=== PATIENT | male | born 1950 | race Caucasian/White ===

== ENCOUNTER 2024-09-05 10:24 | Inpatient (IN) | payer MEDICARE, OTHER ==
[~2024-09-05] VITALS: Ht 177.8 cm; Wt 64.0 kg
[2024-09-05 11:11] LABS: HEMATOCRIT 54.3 % (41-53); HEMOGLOBIN 18.5 g/dL (13.5-17.5); MEAN CORPUSCULAR HEMOGLOBIN 32.2 pg (26.0-34.0); MEAN CORPUSCULAR VOLUME 95 fL (80-100); PLATELET COUNT (AUTO) 144 K/uL (150-450); RED BLOOD CELL COUNT(AUTO) 5.74 MIL/uL (4.50-5.90); RED CELL DISTRIBUTION WIDTH 13.8 % (11.5-14.5); WHITE BLOOD COUNT (AUTO) 20.1 K/uL (4.5-11.0)
[2024-09-05 11:18] LABS: CALCIUM, TOTAL 8.3 mg/dL (8.8-10.5); CARBON DIOXIDE 24 mmol/L (22-29); CHLORIDE 82 mmol/L (98-107); CREATININE 0.87 mg/dL (0.60-1.30); GLOMERULAR FILTR. RATE CALC > 60 mL/min (>60); GLUCOSE,RANDOM 123 mg/dL (70-110); POTASSIUM 3.8 mmol/L (3.5-5.1); UREA NITROGEN, BLOOD 41 mg/dL (7-18)
[2024-09-05 11:24] LABS: ANION GAP 9 mmol/L (8-16); SODIUM SERUM 115 mmol/L (136-145); TROPONIN I-HIGH SENSITIVITY 18 ng/L (<76)
[2024-09-05 11:51] LABS: BAND NEUTROPHILS % (MANUAL) 2 % (0-5); LYMPHOCYTES % (MANUAL) 7 % (22-44); MONOCYTES % (MANUAL) 10 % (2-9); SEGMENTED NEUTROPHILS % 81 % (40-70); TOTAL CELLS COUNTED 100
[2024-09-05] MEDS: SODIUM CHLORIDE 0.9% 1,000 ML IV ONE (11:59)
[2024-09-05 12:32] LABS: APPEARANCE,URINE CLEAR (CLEAR); BILIRUBIN,URINE NEGATIVE (NEGATIVE); COLOR,URINE YELLOW (YELLOW); GLUCOSE, URINE (UA) NEGATIVE (NEGATIVE); LEUKOCYTE ESTERASE ,URINE NEGATIVE (NEGATIVE); NITRATE,URINE NEGATIVE (NEGATIVE); OCCULT BLOOD,URINE TRACE (NEGATIVE); PROTEIN,URINE TRACE mg/dL (NEGATIVE); SPECIFIC GRAVITIY, URINE 1.023 (1.003-1.030); UROBILINOGEN,URINE <=1.0 mg/dL (<=1.0)
[2024-09-05 12:37] LABS: ALBUMIN 2.7 g/dL (3.4-5.0); BILIRUBIN,DIRECT 0.5 mg/dL (0.00-0.20); BILIRUBIN,TOTAL 1.3 mg/dL (0.1-1.0); TOTAL PROTEIN, SERUM 6.1 g/dL (6.4-8.2)
[2024-09-05 12:41] LABS: SODIUM,URINE RANDOM < 5 mmol/l (20-110)
[2024-09-05 12:49] LABS: BACTERIA,URINE None Seen /HPF (None Seen); RBC,URINE 0-2 /HPF (0-2); SQUAMOUS EPITHELIAL CELL,UR Few /LPF (None Seen); WBC,URINE None Seen /HPF (0-5)
[2024-09-05 13:06] LABS: FREE T4 (FREE THYROXINE) 1.01 ng/dL (0.76-1.46); THYROID STIMULATING HORMONE 0.83 uIU/mL (0.36-3.74)
[2024-09-05] MEDS: MORPHINE SULFATE 4 MG/ML SYRINGE IVP ONE (13:15)
[2024-09-05] MEDS: ONDANSETRON HCL 4 MG/2 ML VIAL IVP ONE (13:15)
[2024-09-05] MEDS: SODIUM CHLORIDE 3% 500 ML IV ONE (13:16)
[2024-09-05 13:27] LABS: LACTIC ACID 1.7 mmol/L (0.4-2.0)
[2024-09-05] MEDS: ACETAMINOPHEN 325 MG TABLET PO PRN (14:59)
[2024-09-05] MEDS: PANTOPRAZOLE SODIUM 40 MG/VIAL IVP ONE (15:00)
[2024-09-05 16:10] LABS: ANION GAP 6 mmol/L (8-16); CALCIUM, TOTAL 7.6 mg/dL (8.8-10.5); CARBON DIOXIDE 25 mmol/L (22-29); CHLORIDE 86 mmol/L (98-107); CREATININE 0.74 mg/dL (0.60-1.30); GLOMERULAR FILTR. RATE CALC > 60 mL/min (>60); GLUCOSE,RANDOM 89 mg/dL (70-110); UREA NITROGEN, BLOOD 36 mg/dL (7-18)
[2024-09-05 16:12] LABS: SODIUM SERUM 117 mmol/L (136-145)
[2024-09-05] MEDS: HEPARIN SODIUM,PORCINE 5,000 UNITS/ML VIAL SQ SCH (16:14)
[2024-09-05 16:48] LABS: HEMATOCRIT 49.9 % (41-53); HEMOGLOBIN 16.9 g/dL (13.5-17.5)
[2024-09-05 18:49] LABS: HEMATOCRIT 47.8 % (41-53); HEMOGLOBIN 16.4 g/dL (13.5-17.5); MEAN CORPUSCULAR HEMOGLOBIN 32.2 pg (26.0-34.0); MEAN CORPUSCULAR HGB CONC 34.2 G/dL (31.0-37.0); MEAN CORPUSCULAR VOLUME 94 fL (80-100); PLATELET COUNT (AUTO) 122 K/uL (150-450); RED BLOOD CELL COUNT(AUTO) 5.08 MIL/uL (4.50-5.90); WHITE BLOOD COUNT (AUTO) 16.9 K/uL (4.5-11.0)
[2024-09-05 18:57] LABS: ANION GAP 8 mmol/L (8-16); CALCIUM, TOTAL 7.6 mg/dL (8.8-10.5); CARBON DIOXIDE 22 mmol/L (22-29); CHLORIDE 89 mmol/L (98-107); CREATININE 0.67 mg/dL (0.60-1.30); GLOMERULAR FILTR. RATE CALC > 60 mL/min (>60); GLUCOSE,RANDOM 97 mg/dL (70-110); POTASSIUM 3.9 mmol/L (3.5-5.1); UREA NITROGEN, BLOOD 32 mg/dL (7-18)
[2024-09-05 18:59] LABS: SODIUM SERUM 119 mmol/L (136-145)
[2024-09-05 19:29] LABS: BAND NEUTROPHILS % (MANUAL) 11 % (0-5); LYMPHOCYTES % (MANUAL) 10 % (22-44); MONOCYTES % (MANUAL) 9 % (2-9); SEGMENTED NEUTROPHILS % 70 % (40-70); TOTAL CELLS COUNTED 100
[2024-09-05 20:15] VITALS: BP 125/72; PULSE 92; RESP 18; TEMP 98.7; O2SAT 98
[2024-09-05] MEDS: DOCUSATE SODIUM 100 MG CAPSULE PO SCH (21:00)
[2024-09-05 21:14] LABS: ANION GAP 8 mmol/L (8-16); CALCIUM, TOTAL 7.7 mg/dL (8.8-10.5); CARBON DIOXIDE 24 mmol/L (22-29); CHLORIDE 89 mmol/L (98-107); CREATININE 0.71 mg/dL (0.60-1.30); GLOMERULAR FILTR. RATE CALC > 60 mL/min (>60); GLUCOSE,RANDOM 95 mg/dL (70-110); POTASSIUM 3.7 mmol/L (3.5-5.1); UREA NITROGEN, BLOOD 29 mg/dL (7-18)
[2024-09-05 21:15] LABS: SODIUM SERUM 121 mmol/L (136-145)
[2024-09-05 23:30] VITALS: BP 147/68; PULSE 97; RESP 18; TEMP 97.8; O2SAT 97
[2024-09-05 23:48] LABS: ANION GAP 10 mmol/L (8-16); CALCIUM, TOTAL 7.9 mg/dL (8.8-10.5); CARBON DIOXIDE 22 mmol/L (22-29); CHLORIDE 89 mmol/L (98-107); CREATININE 0.68 mg/dL (0.60-1.30); GLOMERULAR FILTR. RATE CALC > 60 mL/min (>60); GLUCOSE,RANDOM 102 mg/dL (70-110); POTASSIUM 3.7 mmol/L (3.5-5.1); UREA NITROGEN, BLOOD 26 mg/dL (7-18)
[2024-09-05 23:54] LABS: SODIUM SERUM 121 mmol/L (136-145)
[2024-09-06 00:32] LABS: APPEARANCE,URINE CLEAR (CLEAR); BILIRUBIN,URINE NEGATIVE (NEGATIVE); COLOR,URINE YELLOW (YELLOW); GLUCOSE, URINE (UA) NEGATIVE (NEGATIVE); LEUKOCYTE ESTERASE ,URINE NEGATIVE (NEGATIVE); NITRATE,URINE NEGATIVE (NEGATIVE); OCCULT BLOOD,URINE SMALL (NEGATIVE); PH,URINE 6.5 (5.0-8.0); PH,URINE DRUG SCREEN 6.5 (5.0-8.0); PROTEIN,URINE NEGATIVE (NEGATIVE); SPECIFIC GRAVITIY, URINE 1.018 (1.003-1.030); UROBILINOGEN,URINE <=1.0 mg/dL (<=1.0)
[2024-09-06 00:40] LABS: AMPHET/METH SCREEN,URINE NEGATIVE (NEGATIVE); BARBITURATE SCREEN, URINE NEGATIVE (NEGATIVE); BENZODIAZEPINES SCREEN,URINE NEGATIVE (NEGATIVE); CANNABINOID SCREEN,URINE NEGATIVE (NEGATIVE); COCAINE SCREEN,URINE NEGATIVE (NEGATIVE); METHADONE SCREEN, URINE NEGATIVE (NEGATIVE); OPIATE SCREEN,URINE POSITIVE (NEGATIVE); PHENCYCLIDINE SCREEN,URINE NEGATIVE (NEGATIVE)
[2024-09-06 00:41] LABS: BACTERIA,URINE None Seen /HPF (None Seen); RBC,URINE 0-2 /HPF (0-2); SQUAMOUS EPITHELIAL CELL,UR Few /LPF (None Seen); WBC,URINE None Seen /HPF (0-5)
[2024-09-06 00:44] LABS: ALCOHOL, URINE DRUG SCREEN NEGATIVE (NEGATIVE)
[2024-09-06 06:15] VITALS: BP 136/71; PULSE 93; RESP 18; TEMP 98; O2SAT 95
[2024-09-06] MEDS: FAMOTIDINE 20 MG TABLET PO SCH (08:20)
[2024-09-06 08:52] VITALS: BP 151/76; PULSE 91; RESP 18; TEMP 98.1; O2SAT 97
[2024-09-06] MEDS: DEXTROSE 5%-0.9% SODIUM CHL 1,000 ML IV SCH (11:35)
[2024-09-06] MEDS: HYDROCODONE/ACETAMINOPHEN 5-325 MG TABLET PO PRN ×2 (11:43→17:43)
[2024-09-06 12:00] VITALS: BP 152/96; PULSE 93; RESP 18; TEMP 98.2; O2SAT 100
[2024-09-06] MEDS: PIPERACILLIN/TAZO 3.375 GM/D5W 50 ML IV SCH (12:25)
[2024-09-06 13:31] LABS: ANION GAP 6 mmol/L (8-16); CALCIUM, TOTAL 7.5 mg/dL (8.8-10.5); CARBON DIOXIDE 25 mmol/L (22-29); CHLORIDE 91 mmol/L (98-107); GLOMERULAR FILTR. RATE CALC > 60 mL/min (>60); GLUCOSE,RANDOM 115 mg/dL (70-110); PHOSPHORUS 1.9 mg/dL (2.5-4.9); POTASSIUM 3.5 mmol/L (3.5-5.1); UREA NITROGEN, BLOOD 15 mg/dL (7-18)
[2024-09-06 13:32] LABS: SODIUM SERUM 122 mmol/L (136-145)
[2024-09-06 16:00] VITALS: BP 150/103; PULSE 83; RESP 18; TEMP 98.3; O2SAT 99
[2024-09-06] MEDS: MORPHINE SULFATE 2 MG/ML SYRINGE IVP PRN (16:23)
[2024-09-06] MEDS: SODIUM PHOS,M-BASIC-D-BASIC 20 MEQ in DEXTROSE 5%-WATER 100 ML IV ONE (17:36)
[2024-09-06] MEDS: SODIUM CHLORIDE 1 GM TABLET PO SCH (17:45)
[2024-09-06 19:45] LABS: ANION GAP 7 mmol/L (8-16); CALCIUM, TOTAL 7.6 mg/dL (8.8-10.5); CARBON DIOXIDE 26 mmol/L (22-29); CHLORIDE 92 mmol/L (98-107); CREATININE 0.73 mg/dL (0.60-1.30); GLOMERULAR FILTR. RATE CALC > 60 mL/min (>60); GLUCOSE,RANDOM 89 mg/dL (70-110); POTASSIUM 3.6 mmol/L (3.5-5.1); SODIUM SERUM 125 mmol/L (136-145); UREA NITROGEN, BLOOD 12 mg/dL (7-18)
[2024-09-06 21:42] VITALS: BP 151/73; PULSE 83; RESP 19; TEMP 98.1; O2SAT 98
[2024-09-06 23:00] VITALS: BP 139/79; PULSE 83; RESP 19; TEMP 98; O2SAT 98
[2024-09-06] MEDS ORDERED: DEXMEDETOMIDINE 400 MCG/NS 100 ML IV PRN (23:00)
[2024-09-06] MEDS ORDERED: LORazepam 2 MG TABLET PO PRN (23:00)
[2024-09-06] MEDS: DiphenhydrAMINE HCL 50 MG/ML VIAL IM ONE (23:04)
[2024-09-06] MEDS: HALOPERIDOL LACTATE 5 MG/ML VIAL IM ONE (23:06)
[2024-09-06] MEDS: LORazepam 2 MG/ML VIAL IM ONE (23:06)
[2024-09-07] VITALS (8 sets, daily range): BP systolic 87–151; BP diastolic 55–80; PULSE 70–109; RESP 17–22; TEMP 97.6–98; O2SAT 94–100
[2024-09-07] MEDS ORDERED: SODIUM CHLORIDE 0.9% 250 ML IV ONE (00:05)
[2024-09-07] MEDS ORDERED: SODIUM CHLORIDE 0.9% 500 ML IV ONE ×2 (02:45→02:50)
[2024-09-07] MEDS: SODIUM CHLORIDE 0.9% 500 ML IV ONE (03:05)
[2024-09-07 06:58] LABS: BASOPHILS % (AUTO) 0.2 % (0.0-2.0); EOSINOPHILS % (AUTO) 0.4 % (1.0-6.0); HEMATOCRIT 45.4 % (41-53); HEMOGLOBIN 15.7 g/dL (13.5-17.5); LYMPHOCYTES % (AUTO) 21.6 % (22.0-44.0); MEAN CORPUSCULAR HEMOGLOBIN 33.1 pg (26.0-34.0); MEAN CORPUSCULAR HGB CONC 34.6 G/dL (31.0-37.0); MEAN CORPUSCULAR VOLUME 96 fL (80-100); MONOCYTES # (AUTO) 1.1 K/uL (0.1-1.0); MONOCYTES % (AUTO) 11.9 % (2.0-9.0); NEUTROPHILS % (AUTO) 65.9 % (40.0-70.0); PLATELET COUNT (AUTO) 120 K/uL (150-450); RED BLOOD CELL COUNT(AUTO) 4.74 MIL/uL (4.50-5.90); RED CELL DISTRIBUTION WIDTH 13.7 % (11.5-14.5); WHITE BLOOD COUNT (AUTO) 9.1 K/uL (4.5-11.0)
[2024-09-07] MEDS ORDERED: LORazepam 2 MG TABLET PO PRN (07:00)
[2024-09-07 07:14] LABS: ANION GAP 8 mmol/L (8-16); CALCIUM, TOTAL 7.6 mg/dL (8.8-10.5); CARBON DIOXIDE 24 mmol/L (22-29); CHLORIDE 96 mmol/L (98-107); CREATININE 0.67 mg/dL (0.60-1.30); GLOMERULAR FILTR. RATE CALC > 60 mL/min (>60); GLUCOSE,RANDOM 79 mg/dL (70-110); POTASSIUM 3.3 mmol/L (3.5-5.1); SODIUM SERUM 128 mmol/L (136-145); UREA NITROGEN, BLOOD 8 mg/dL (7-18)
[2024-09-07 07:25] LABS: RBC MORPHOLOGY COMMENT NORMAL RBC MORPH
[2024-09-07] MEDS: LORazepam 2 MG TABLET PO SCH (09:29)
[2024-09-07] MEDS: POTASSIUM CHLORIDE 20 MEQ ER TABLET PO ONE (09:31)
[2024-09-08 03:52] VITALS: BP 143/77; PULSE 91; RESP 18; TEMP 97.7; O2SAT 98
[2024-09-08 08:14] VITALS: BP 146/80; PULSE 98; RESP 18; TEMP 98.7; O2SAT 18
[2024-09-08] MEDS ORDERED: 0.9% SODIUM CHLORIDE 10 ML SYRINGE IVP ONE (13:39)
[2024-09-08] MEDS ORDERED: IOHEXOL 350 MG/ML 100 ML VIAL ONE (13:39)
[2024-09-08] MEDS ORDERED: SODIUM CHLORIDE 0.9% 100 ML ONE (13:39)
[2024-09-08 15:13] VITALS: BP 140/76; RESP 17; O2SAT 99
[2024-09-08 15:16] VITALS: BP 137/66; PULSE 92; RESP 18; TEMP 98.3; O2SAT 97
[2024-09-08] MEDS: POTASSIUM CHLORIDE 20 MEQ ER TABLET PO SCH (16:32)
[2024-09-08 18:57] LABS: ANION GAP 9 mmol/L (8-16); CALCIUM, TOTAL 8.4 mg/dL (8.8-10.5); CARBON DIOXIDE 26 mmol/L (22-29); CHLORIDE 100 mmol/L (98-107); CREATININE 0.66 mg/dL (0.60-1.30); GLOMERULAR FILTR. RATE CALC > 60 mL/min (>60); GLUCOSE,RANDOM 139 mg/dL (70-110); POTASSIUM 3.2 mmol/L (3.5-5.1); SODIUM SERUM 135 mmol/L (136-145); UREA NITROGEN, BLOOD 8 mg/dL (7-18)
[2024-09-08 19:53] VITALS: BP 141/77; PULSE 100; RESP 18; TEMP 98; O2SAT 98
[2024-09-09 04:37] VITALS: BP 146/82; PULSE 84; RESP 16; TEMP 97; O2SAT 99
[2024-09-09 04:40] VITALS: BP 146/82; PULSE 84; RESP 16; TEMP 97; O2SAT 99
[2024-09-09] MEDS ORDERED: LORazepam 1 MG TABLET PO PRN (07:00)
[2024-09-09 08:11] VITALS: BP 137/80; PULSE 92; RESP 19; TEMP 98.4; O2SAT 100
[2024-09-09] MEDS ORDERED: LORazepam 1 MG TABLET PO SCH (09:00)
[2024-09-09] MEDS ORDERED: SODI100067 PO (09:28)
[2024-09-09] MEDS ORDERED: LEVO-72 PO ×2 (09:29→09:31)
[2024-09-09 11:07] LABS: ANION GAP 5 mmol/L (8-16); CARBON DIOXIDE 29 mmol/L (22-29); CHLORIDE 101 mmol/L (98-107); CREATININE 0.73 mg/dL (0.60-1.30); GLOMERULAR FILTR. RATE CALC > 60 mL/min (>60); GLUCOSE,RANDOM 141 mg/dL (70-110); POTASSIUM 3.3 mmol/L (3.5-5.1); SODIUM SERUM 135 mmol/L (136-145); UREA NITROGEN, BLOOD 9 mg/dL (7-18)
[2024-09-09 11:51] VITALS: BP 144/74; PULSE 94; RESP 18; TEMP 97.6; O2SAT 100
[2024-09-09 16:03] VITALS: BP 138/72; PULSE 90; RESP 19; TEMP 97.9; O2SAT 99
[2024-09-09] MEDS ORDERED: BISACODYL 10 MG RECTAL RECTAL SUPPOSITORY PR PRN (18:00)
[2024-09-09] MEDS: MAGNESIUM HYDROXIDE SUSPENSION 30 ML UDCUP PO PRN (18:15)
[2024-09-09] MEDS: SODIUM CHLORIDE 1 GM TABLET PO SCH (20:05)
[2024-09-09] MEDS: ZOLPIDEM TARTRATE 5 MG TABLET PO PRN (20:05)
[2024-09-09 20:12] VITALS: BP 134/82; PULSE 80; RESP 18; TEMP 98; O2SAT 99
[2024-09-10 05:10] VITALS: BP 142/74; PULSE 82; RESP 19; TEMP 98.3; O2SAT 97
[2024-09-10] MEDS ORDERED: LORazepam 1 MG TABLET PO PRN (07:00)
[2024-09-10 07:42] LABS: BASOPHILS % (AUTO) 0.4 % (0.0-2.0); EOSINOPHILS % (AUTO) 2.2 % (1.0-6.0); HEMATOCRIT 37.1 % (41-53); HEMOGLOBIN 12.7 g/dL (13.5-17.5); LYMPHOCYTES # (AUTO) 2.7 K/uL (1.0-4.8); MEAN CORPUSCULAR HEMOGLOBIN 32.6 pg (26.0-34.0); MEAN CORPUSCULAR HGB CONC 34.3 G/dL (31.0-37.0); MEAN CORPUSCULAR VOLUME 95 fL (80-100); MONOCYTES # (AUTO) 1.7 K/uL (0.1-1.0); MONOCYTES % (AUTO) 18.7 % (2.0-9.0); NEUTROPHILS # (AUTO) 4.4 K/uL (1.8-7.7); NEUTROPHILS % (AUTO) 48.7 % (40.0-70.0); PLATELET COUNT (AUTO) 223 K/uL (150-450); RED BLOOD CELL COUNT(AUTO) 3.91 MIL/uL (4.50-5.90); RED CELL DISTRIBUTION WIDTH 13.5 % (11.5-14.5)
[2024-09-10 07:52] LABS: ALANINE AMINOTRANSFERASE 24 U/L (12-78); ALBUMIN 2.1 g/dL (3.4-5.0); ALKALINE PHOSPHATASE 48 U/L (46-116); ANION GAP 7 mmol/L (8-16); ASPARTATE AMINOTRANSFERASE 35 U/L (15-37); BILIRUBIN,TOTAL 0.5 mg/dL (0.1-1.0); CALCIUM, TOTAL 8.2 mg/dL (8.8-10.5); CARBON DIOXIDE 27 mmol/L (22-29); CHLORIDE 100 mmol/L (98-107); GLOMERULAR FILTR. RATE CALC > 60 mL/min (>60); GLUCOSE,RANDOM 100 mg/dL (70-110); SODIUM SERUM 134 mmol/L (136-145); TOTAL PROTEIN, SERUM 5.2 g/dL (6.4-8.2); UREA NITROGEN, BLOOD 9 mg/dL (7-18)
[2024-09-10 07:59] VITALS: BP 132/71; PULSE 80; RESP 20; TEMP 98.5; O2SAT 96
[2024-09-10 15:35] VITALS: BP 138/77; PULSE 75; RESP 20; TEMP 98; O2SAT 96
[2024-09-10 16:43] VITALS: BP 138/77; PULSE 75; RESP 20; TEMP 98; O2SAT 96
[2024-09-10 20:08] VITALS: BP 137/70; PULSE 76; RESP 18; TEMP 97.9; O2SAT 98
[2024-09-11 05:37] VITALS: BP 127/77; PULSE 78; RESP 18; TEMP 97.9; O2SAT 98
[2024-09-11 09:27] VITALS: BP 102/55; PULSE 82; RESP 19; TEMP 97.9; O2SAT 98
[2024-09-11] MEDS ORDERED: ONDANSETRON HCL 4 MG/2 ML VIAL IVP PRN (10:30)
[2024-09-11 15:13] VITALS: BP 133/69; PULSE 68; RESP 18; TEMP 98.4; O2SAT 98
[2024-09-11 18:35] VITALS: BP 133/69; PULSE 68; RESP 18; TEMP 98.4; O2SAT 98
[2024-09-11] MEDS: DiphenhydrAMINE HCL 50 MG/ML VIAL IVP ONE (18:46)
[2024-09-11 19:56] VITALS: BP 143/84; PULSE 79; RESP 20; TEMP 98.1; O2SAT 98
[2024-09-12 06:08] VITALS: BP 128/76; PULSE 75; RESP 19; TEMP 99.4; O2SAT 98
[2024-09-12 07:44] LABS: ANION GAP 7 mmol/L (8-16); CALCIUM, TOTAL 7.9 mg/dL (8.8-10.5); CARBON DIOXIDE 26 mmol/L (22-29); CHLORIDE 100 mmol/L (98-107); CREATININE 0.78 mg/dL (0.60-1.30); GLOMERULAR FILTR. RATE CALC > 60 mL/min (>60); GLUCOSE,RANDOM 99 mg/dL (70-110); POTASSIUM 3.9 mmol/L (3.5-5.1); SODIUM SERUM 133 mmol/L (136-145); UREA NITROGEN, BLOOD 10 mg/dL (7-18)
[2024-09-12 08:53] VITALS: BP 129/66; PULSE 76; RESP 18; TEMP 97.6; O2SAT 99
[2024-09-12 10:12] VITALS: BP 129/66; PULSE 76; RESP 18; TEMP 97.6; O2SAT 99
[2024-09-12 15:15] VITALS: BP 145/74; PULSE 71; RESP 18; TEMP 98.2; O2SAT 99
[2024-09-12 19:31] VITALS: BP 128/66; PULSE 79; RESP 18; TEMP 98.5; O2SAT 98
[2024-09-12 20:00] VITALS: BP 128/66; PULSE 79; RESP 18; TEMP 98.5; O2SAT 98
[2024-09-13 04:28] VITALS: BP 136/72; PULSE 78; RESP 19; TEMP 98.7; O2SAT 99
[2024-09-13 08:01] VITALS: BP 123/62; PULSE 82; RESP 18; TEMP 98.1; O2SAT 98
[2024-09-13 08:27] VITALS: BP 133/72; PULSE 76; RESP 18; TEMP 97.6; O2SAT 99
[2024-09-13] MEDS: LEVOFLOXACIN 750 MG TABLET PO SCH (15:10)
[2024-09-13 15:16] VITALS: BP 120/70; PULSE 71; RESP 18; TEMP 98.5; O2SAT 98
[2024-09-13 19:34] VITALS: BP 120/62; PULSE 81; RESP 18; TEMP 98.1; O2SAT 99
[2024-09-14 07:30] LABS: ANION GAP 7 mmol/L (8-16); CALCIUM, TOTAL 7.8 mg/dL (8.8-10.5); CARBON DIOXIDE 26 mmol/L (22-29); CHLORIDE 102 mmol/L (98-107); CREATININE 0.72 mg/dL (0.60-1.30); GLOMERULAR FILTR. RATE CALC > 60 mL/min (>60); GLUCOSE,RANDOM 103 mg/dL (70-110); POTASSIUM 3.8 mmol/L (3.5-5.1); SODIUM SERUM 135 mmol/L (136-145); UREA NITROGEN, BLOOD 13 mg/dL (7-18)
[2024-09-14] MEDS ORDERED: LEVO-72 PO (10:57)
== END 2024-09-14 16:25 | disposition home or self-care (01) | DRG 640 ==
LOC: EMS 10:30 → EDH 12:33 → 5S 19:33 → 6S 09-07 19:23
PROVIDERS: ADMIT Internal Medicine; ATTEND Internal Medicine
PROC: 05HC33Z Insertion of Infusion Device into Left Basilic Vein, Percutaneous Approach (ICD-10-PCS; principal; 2024-09-08)
PROC: B54NZZA Ultrasonography of Left Upper Extremity Veins, Guidance (ICD-10-PCS; 2024-09-08)
DX: E87.1 Hypo-osmolality and hyponatremia (principal); G93.41 Metabolic encephalopathy; R65.10 Systemic inflammatory response syndrome (SIRS) of non-infectious origin without acute organ dysfunction; R78.81 Bacteremia; F10.939 Alcohol use, unspecified with withdrawal, unspecified; K92.2 Gastrointestinal hemorrhage, unspecified; R53.81 Other malaise; D72.829 Elevated white blood cell count, unspecified; E87.6 Hypokalemia; G89.29 Other chronic pain; R26.2 Difficulty in walking, not elsewhere classified; Z87.891 Personal history of nicotine dependence
CPT/HCPCS: 36245; 36569; 70450; 71045; 71260; 72193; 74160; 76705; 76937; 80048; 80053; 80076; 80307; 81001; 82140; 82533; 83605; 83690; 83735; 83880; 83930; 83935; 84100; 84300; 84439; 84443; 84484; 85014; 85018; 85025; 86850; 86900; 86901; 87040; 87077; 87205; 93005; 93306; 97116; 97162; 97166; 97530; 97535; 99285; G0378; J1200; J1630; J1644; J2060; J2270; J2405; J2470; J2543; J3490; J7030; J7040; J7042; J7050; J7060; 36415-L1; 36415-TC; X7700